=== PATIENT | female | born 1970 | race Caucasian/White ===

== ENCOUNTER 2017-07-06 13:46 | Emergency (ER) | payer BC, MEDICAID ==
[~2017-07-06] VITALS: Ht 162.6 cm; Wt 64.0 kg
[2017-07-06] MEDS ORDERED: METOCLOPRAMIDE HCL 5MG TABLET PO ONE (16:30)
[2017-07-06] MEDS ORDERED: KETOROLAC 60MG/2ML VIAL IM ONE (16:30)
[2017-07-06 20:04] VITALS: BP 138/77
== END 2017-07-06 20:06 | disposition home or self-care (01) ==
LOC: ER 14:01
DX: M54.2 Cervicalgia (principal); R51 Headache
CPT/HCPCS: 72125; 81025; 96372; 99284; J1885; J8597